=== PATIENT | male | born 1985 | race Caucasian/White ===

== ENCOUNTER 2019-07-21 09:41 | Emergency (ER) | payer BC, SELFPAY ==
[~2019-07-21 09:41] MED LIST: Sodium Chloride Irrig Solution 250 ML BOT ONE
[2019-07-21] MEDS ORDERED: Bupivacaine PF 0.5% 30 ML VIAL ONE (10:20)
[2019-07-21] MEDS ORDERED: Adacel (T-DAP) 0.5 ML SYRINGE ONE (10:21)
[2019-07-21] MEDS ORDERED: Bacitracin 1 PK ONE (11:02)
== END 2019-07-21 11:14 | disposition home or self-care (01) ==
LOC: MADERS 09:41
DX: S61.212A Laceration without foreign body of right middle finger without damage to nail, initial encounter (principal); S61.211A Laceration without foreign body of left index finger without damage to nail, initial encounter; W26.0XXA Contact with knife, initial encounter
CPT/HCPCS: 12002; 90471; 90715; S0020

== ENCOUNTER 2020-03-10 13:23 | Emergency (ER) | payer SELFPAY | END 2020-03-10 14:20 | disposition short-term general hospital (02) | LOC: MADERS 13:23 | DX: K22.2 Esophageal obstruction (principal) | CPT/HCPCS: 99284 ==